=== PATIENT | male | born 1985 | race Caucasian/White ===

== ENCOUNTER 2019-04-02 17:12 | Emergency (ER) | payer BC ==
--- NOTE | 2019-04-02 17:15 | EDM.PDOC ---
ED HPI GENERAL MEDICAL PROBLEM - General Stated Complaint: SORE THROAT, SHORTNESS OF BREATH Time Seen by Provider: 04/02/19 17:15 Source of Information: Reports: Patient - History of Present Illness INITIAL COMMENTS - FREE TEXT/NARRATIVE: HISTORY AND PHYSICAL: History of present illness: [Sore throat increasing in severity over the last 2-3 days some difficulty with solid food no difficulty with liquid no muffled voice drooling or trismus Review of systems: As per history of present illness and below otherwise all systems reviewed and negative. Past medical history: As per history of present illness and as reviewed below otherwise noncontributory. Surgical history: As per history of present illness and as reviewed below otherwise noncontributory. Social history: No reported history of drug or alcohol abuse. Family history: As per history of present illness and as reviewed below otherwise noncontributory. Physical exam: HEENT: Atraumatic, normocephalic, pupils reactive, negative for conjunctival pallor or scleral icterus, mucous membranes moist, throat clear, neck supple, nontender, trachea midline. Erythema white patchy exudates Lungs: Clear to auscultation, breath sounds equal bilaterally, chest nontender. Heart: S1S2, regular, negative for clicks, rubs, or JVD. Abdomen: Soft, nondistended, nontender. Negative for masses or hepatosplenomegaly. Negative for costovertebral tenderness. Pelvis: Stable nontender. Genitourinary: Deferred. Rectal: Deferred. Extremities: Atraumatic, negative for cords or calf pain. Neurovascular unremarkable. Neuro: Awake, alert, oriented. Cranial nerves II through XII unremarkable. Cerebellum unremarkable. Motor and sensory unremarkable throughout. Exam nonfocal. Diagnostics: [Rapid strep Chest 1 view] Therapeutics: [Rocephin 1 g IM Augmentin] Impression: [Acute pharyngitis ] Definitive disposition and diagnosis as appropriate pending reevaluation and review of above. Throat Pain Score (Numeric/FACES): 8 - Related Data Allergies Allergy/AdvReac Type Severity Reaction Status Date / Time codeine Allergy Airway Verified 04/02/19 17:35 Tightness Home Meds: Home Meds . [No Known Home Meds] 04/02/19 [History] ED ROS GENERAL - Review of Systems Review Of Systems: See Below ED EXAM, GENERAL - Physical Exam Exam: See Below Course - Vital Signs Last Recorded V/S: Last Vital Signs Temp 97.1 F 04/02/19 17:36 Pulse 85 04/02/19 17:36 Resp 17 04/02/19 17:36 BP 141/77 H 04/02/19 17:36 Pulse Ox 97 04/02/19 17:36 - Orders/Labs/Meds Orders: Active Orders 24 hr Category Date Time Status RT Aerosol Therapy [RC] ASDIRECTED Care 04/02/19 17:16 Active Chest 1V Frontal [CR] Stat Exams 04/02/19 17:15 Taken STREP SCRN A RAPID W CULT CONF [RM] Stat Lab 04/02/19 17:49 Received Meds: Medications Discontinued Medications Generic Name Dose Route Start Last Admin Trade Name Freq PRN Reason Stop Dose Admin Albuterol/Ipratropium 3 ml 04/02/19 17:16 04/02/19 17:37 Duoneb 3.0-0.5 Mg/3 Ml NEB 04/02/19 17:17 3 ml ONETIME ONE Administration Ceftriaxone Sodium 1 gm 04/02/19 17:59 Rocephin IM 04/02/19 18:00 ONETIME ONE Departure - Departure Time of Disposition: 18:02 Disposition: Home, Self-Care 01 Condition: Good Clinical Impression: Acute pharyngitis - Discharge Information Additional Instructions: The following information is given to patients seen in the emergency department who are being discharged to home. This information is to outline your options for follow-up care. We provide all patients seen in our emergency department with a follow-up referral. The need for follow-up, as well as the timing and circumstances, are variable depending upon the specifics of your emergency department visit. If you don't have a primary care physician on staff, we will provide you with a referral. We always advise you to contact your personal physician following an emergency department visit to inform them of the circumstance of the visit and for follow-up with them and/or the need for any referrals to a consulting specialist. The emergency department will also refer you to a specialist when appropriate. This referral assures that you have the opportunity for follow-up care with a specialist. All of these measure are taken in an effort to provide you with optimal care, which includes your follow-up. Under all circumstances we always encourage you to contact your private physician who remains a resource for coordinating your care. When calling for follow-up care, please make the office aware that this follow-up is from your recent emergency room visit. If for any reason you are refused follow-up, please contact the [facility] emergency department at and asked to speak to the emergency department charge nurse. - My Orders Last 24 Hours: My Active Orders 04/02/19 17:15 Chest 1V Frontal [CR] Stat 04/02/19 17:16 RT Aerosol Therapy [RC] ASDIRECTED 04/02/19 17:49 STREP SCRN A RAPID W CULT CONF [RM] Stat - Assessment/Plan Last 24 Hours: My Active Orders 04/02/19 17:15 Chest 1V Frontal [CR] Stat 04/02/19 17:16 RT Aerosol Therapy [RC] ASDIRECTED 04/02/19 17:49 STREP SCRN A RAPID W CULT CONF [RM] Stat
[2019-04-02] MEDS ORDERED: Albuterol/Ipratropium 3.0-0.5 MG/3 ML Neb Soln NEB ONE (17:16)
[2019-04-02] MEDS ORDERED: cefTRIAXone 1 GM Vial IM ONE (17:59)
--- NOTE | 2019-04-02 18:09 | CR ---
TECHNIQUE: Portable AP chest. INDICATION: Cough, shortness of breath, chest pain. FINDINGS: The lungs are clear. Normal heart size and pulmonary vascularity. No pleural effusion. No pneumothorax. IMPRESSION: Normal chest. Dictated by Alan Dennis MD @ 04/02/2019 6:08:06 PM Dictated by: Alan Dennis MD @ 04/02/2019 18:08:21 (Electronically Signed)
== END 2019-04-02 18:30 | disposition home or self-care (01) ==
LOC: MW.ED 17:12
DX: J02.9 Acute pharyngitis, unspecified (principal); Z88.5 Allergy status to narcotic agent
CPT/HCPCS: 71045; 87081; 87880; 94640; 96372; 99283; J0696; J2001; J7620-GY

== ENCOUNTER 2024-01-27 04:42 | Emergency (ER) | payer BC ==
[2024-01-27] MEDS: Colchicine 0.6 MG Tab PO ONE ×2 (05:09→06:20)
[2024-01-27] MEDS: Ondansetron 4 MG/2 ML SDV IVPUSH ONE (05:09)
[2024-01-27] MEDS: Sodium Chloride 0.9% 1,000 ML IV ONE (05:09)
[2024-01-27] MEDS: Sodium Chloride 0.9% 2.5 ML Syringe FLUSH PRN (05:10)
[2024-01-27] MEDS: Sodium Chloride 0.9% 10 ML Syringe FLUSH PRN (05:10)
[2024-01-27 05:14] LABS: BASOPHILS ABSOLUTE AUTO 0.14 K/uL (0.00-0.20); EOSINOPHILS ABSOLUTE AUTO 0.55 K/uL (0.00-0.45); EOSINOPHILS PERCENT AUTO 3.7 % (0.0-6.0); HEMATOCRIT 46.1 % (42.0-52.0); HEMOGLOBIN 16.4 g/dL (14.0-18.0); IMMATURE GRAN ABSOLUTE AUTO 0.08 K/uL (0.00-0.05); IMMATURE GRAN PERCENT AUTO 0.5 % (0.0-0.4); LYMPHOCYTES ABSOLUTE AUTO 2.74 K/uL (1.00-4.80); LYMPHOCYTES PERCENT AUTO 18.6 % (24.0-44.0); MEAN CORPUSCULAR HEMOGLOBIN 30.3 pg (28.0-32.0); MEAN CORPUSCULAR HGB CONC 35.6 g/dL (32.0-36.0); MEAN CORPUSCULAR VOLUME 85.2 fL (83.0-99.0); MEAN PLATELET VOLUME 9.3 fL (9.4-12.4); MONOCYTES ABSOLUTE AUTO 1.34 K/uL (0.00-0.80); MONOCYTES PERCENT AUTO 9.1 % (0.0-8.0); NEUTROPHILS ABSOLUTE AUTO 9.86 K/uL (1.80-7.70); NEUTROPHILS PERCENT AUTO 67.1 % (41.0-71.0); PLATELET COUNT,PLT 327 K/uL (150-400); RED BLOOD CELL COUNT 5.41 M/uL (4.52-5.90); WHITE BLOOD CELL COUNT,WBC 14.71 K/uL (3.9-11.3)
[2024-01-27 05:31] LABS: CALCIUM 8.8 mg/dL (8.5-10.1); CARBON DIOXIDE,CO2 25.4 mmol/L (21.0-32.0); EST CRCL DRUG DOSING (CG) 127.46 mL/min; POTASSIUM,K 3.3 mmol/L (3.5-5.1)
[2024-01-27] MEDS: Ketorolac 30 MG/ML SDV IVPUSH ONE (05:55)
== END 2024-01-27 06:35 | disposition home or self-care (01) ==
LOC: MW.ED 04:42
DX: M10.9 Gout, unspecified (principal); I10 Essential (primary) hypertension; Z88.5 Allergy status to narcotic agent; M79.674 Pain in right toe(s); Z79.899 Other long term (current) drug therapy
CPT/HCPCS: 36415; 73630; 80048; 85025; 96374; 96375; 99283; A9270; J1885; J2405; J3490; J7030; 99284

== ENCOUNTER 2024-08-28 06:58 | Emergency (ER) | payer BC | END 2024-08-28 08:07 | disposition home or self-care (01) | LOC: MW.ED 06:58 | DX: B02.9 Zoster without complications (principal); H66.005 Acute suppurative otitis media without spontaneous rupture of ear drum, recurrent, left ear; I10 Essential (primary) hypertension; Z88.5 Allergy status to narcotic agent; Z79.899 Other long term (current) drug therapy | CPT/HCPCS: 99282; 99283 ==

== ENCOUNTER 2025-02-25 06:28 | Emergency (ER) | payer BC ==
[2025-02-25] MEDS: Acetaminophen/HYDROcodone 325-5 MG Tab PO ONE (07:48)
== END 2025-02-25 07:50 | disposition home or self-care (01) ==
LOC: MW.ED 06:28
DX: S67.01XA Crushing injury of right thumb, initial encounter (principal); I10 Essential (primary) hypertension; Z88.5 Allergy status to narcotic agent; Z79.899 Other long term (current) drug therapy; W23.1XXA Caught, crushed, jammed, or pinched between stationary objects, initial encounter
CPT/HCPCS: 73140; 99283; A9270; 99282